=== PATIENT | female | born 1970 | race Caucasian/White ===

== ENCOUNTER 2019-01-18 17:32 | Emergency (ER) | payer BC ==
--- NOTE | 2019-01-18 18:42 | Emergency Department Record ---
History of Present Illness - General Chief Complaint: Neck Injury/Pain Stated Complaint: NECK PAIN Time Seen by Provider: 01/18/19 18:36 Source: Patient Mode of Arrival: Ambulatory Limitations: No limitations - History of Present Illness Initial Comments: 48 yo female presents with neck and jaw pain that started yesterday. She states it is an ache. She does not recall any injury. The pain lasted about 20 minutes yesterday but about 2 hours today. She has been getting physical therapy for a shoulder issue. She does not feel like she injured the shoulder doing the therapy. She denies a history of CAD. She does have a history of HTN and DM. She is a non smoker. No family history of premature CAD. No chest pain or shortness of breath. It is not related to exertion. No sweating. No fatigue. She states her is a typer and directed her to go to the ER for an EKG. MD Complaint: Neck pain Onset/Timin -: Days(s) Place: Home Radiation: Left shoulder Severity: Mild Severity scale (1-10): 1 Consistency: Constant Improves With: None Worsens With: None Associated Symptoms: None Treatments Prior to Arrival: None - Related Data Home Medications Medication Instructions Recorded Confirmed Last Taken Bupropion HCl [Bupropion Xl] 150 mg PO DAILY 01/18/19 01/18/19 Unknown Allergies Allergy/AdvReac Type Severity Reaction Status Date / Time No Known Drug Allergies Allergy Verified 04/10/15 14:42 Travel Screening - Travel/Exposure Within Last 30 Days Have you traveled within the last 30 days?: No Review of Systems Constitutional: Denies: Chills, Fever, Weakness Eyes: Denies: Eye discharge ENT: Reports: Throat pain. Denies: Congestion, Ear pain, Epistaxis, Hearing loss Respiratory: Denies: Cough, Hemoptysis, Stridor, Wheezes Cardiovascular: Denies: Arrhythmia, Chest pain, Dyspnea on exertion, Edema, Murmurs, Palpitations, Syncope Endocrine: Denies: Fatigue Gastrointestinal: Denies: Abdominal pain, Diarrhea, Nausea, Vomiting Genitourinary: Denies: Dysuria, Frequency, Hematuria Musculoskeletal: Reports: As per HPI, Neck pain. Denies: Arthralgia, Back pain Skin: Denies: Bruising, Change in color, Rash Neurological: Denies: Headache, Numbness, Tingling, Weakness Psychiatric: Denies: Anxiety Hematological/Lymphatic: Denies: Easy bleeding, Easy bruising Past Medical History - SOCIAL HISTORY Smoking Status: Never smoker Alcohol Use: None Drug Use: None - RESPIRATORY Hx Respiratory Disorders: No - CARDIOVASCULAR Hx Cardio Disorders: Yes Comment:: aortic an - NEURO Hx Neuro Disorders: No - GI Hx GI Disorders: Yes Hx Abdominal Pain: Yes - Hx Genitourinary Disorders: No - ENDOCRINE Hx Endocrine Disorders: Yes Hx Diabetes: Yes (type 2) Hx Thyroid Disease: No - MUSCULOSKELETAL Hx Musculoskeletal Disorders: No - PSYCH Hx Psych Problems: No - HEMATOLOGY/ONCOLOGY Hx Hematology/Oncology Disorders: No Family Medical History Any Significant Family History?: No Physical Exam - General General Appearance: Alert, Oriented x3, Cooperative, No acute distress Limitations: No limitations - Head Head exam: Atraumatic, Normal inspection - Eye Eye exam: Normal appearance, PERRL. negative: Conjunctival injection, Scleral icterus - ENT ENT exam: Normal exam, Mucous membranes moist Ear exam: Normal external inspection Nasal Exam: Normal inspection Mouth exam: Normal external inspection Teeth exam: Normal inspection - Neck Neck exam: Normal inspection, Full ROM. negative: Lymphadenopathy, Meningismus, Tenderness, Thyromegaly - Respiratory Respiratory exam: Normal lung sounds bilaterally. negative: Accessory muscle use, Chest wall tenderness, Decreased breath sounds, Prolonged expiratory, Respiratory distress, Rhonchi, Stridor, Wheezes - Cardiovascular Cardiovascular Exam: Regular rate, Normal rhythm, Normal heart sounds Peripheral Pulses: 2+: Radial (R), Radial (L) - GI/Abdominal GI/Abdominal exam: Soft. negative: Tenderness - Rectal Rectal exam: Deferred - exam: Deferred - Extremities Extremities exam: Normal inspection. negative: Pedal edema, Tenderness - Back Back exam: Denies: CVA tenderness (R), CVA tenderness (L) - Neurological Neurological exam: Alert, Oriented X3 - Psychiatric Psychiatric exam: Normal affect, Normal mood - Skin Skin exam: Dry, Intact, Normal color, Warm Course Vital Signs 01/18/19 18:11 Temperature 98.8 F Pulse Rate 74 Respiratory 16 Rate Blood Pressure 149/75 Pulse Ox 97 - Reevaluation(s) Reevaluation #1: 01/18/19 18:41 EKG#1 18:40 Rate 54 Rhythm sinus [place] normal Intervals normal ST Segs normal Prior none Normal EKG The labs results were reviewed There are no acute significant abnormalities of the CBC There are no acute significant abnormalities of the BMP The Troponin is normal The HEART SCORE is LOW risk She has an atypical presentation not highly suggestive of ACS or other acute process The patient will be discharged home with recommendation for follow up with her PCP We did discusse reasons to return immediately to the ED. 01/18/19 19:31 The patient did not have chest pain, atypical presentation, no aspirin indicated 01/18/19 Medical Decision Making - Lab Data Result diagrams: 01/18/19 18:42 01/18/19 18:42 Disposition Disposition: Discharge Clinical Impression: Neck pain Disposition: Home, Self-Care Condition: (1) Good Instructions: Neck Pain (ED) Additional Instructions: Call your doctor for the next available follow up appointment Review this ER visit and the tests performed with your family doctor Return to the ER for a recheck if worse, any new concerns or questions Forms: Patient Portal Access Time of Disposition: 19:33 Quality - Quality Measures Quality Measures: N/A - Blood Pressure Screening Does Patient Have Any of the Following: Active Dx of HTN Blood Pressure Classification: Hypertensive Reading Systolic Measurement: 149 Diastolic Measurement: 75 Screening for High Blood Pressure: Patient Exclusion, Hx of HTN [G9744]
[2019-01-18 18:52] LABS: BASO % 0.3 % (0-6); EOS % 0.9 % (0-6); GRAN % 62.4 % (47-80); HEMATOCRIT 43.7 % (35.0-47.0); HEMOGLOBIN 14.1 gm/dl (11.6-16.0); LYMPH % 29.7 % (16-45); MEAN CORPUSCULAR HEMOGLOBIN 27.8 pg (27-33); MEAN CORPUSCULAR HGB CONC 32.3 g/dl (32-36); MONO % 6.7 % (0-9); PLATELET COUNT 182 K/uL (130-400); RED BLOOD COUNT 5.08 M/uL (3.80-5.40); RED CELL DISTRIBUTION WIDTH 14.2 % (11.5-14.5); WHITE BLOOD COUNT W/O DIFF 6.6 K/uL (4.2-12.2)
[2019-01-18 19:05] LABS: BLOOD UREA NITROGEN 13 mg/dL (6-20); CREATININE 0.8 mg/dL (0.5-0.9); EST GLOMERULAR FILTRATION RATE > 60 mL/min
[2019-01-18 19:07] LABS: GLUCOSE,RANDOM 124 mg/dL (74-109)
== END 2019-01-18 19:56 | disposition home or self-care (01) ==
LOC: ER 17:32
DX: M54.2 Cervicalgia (principal); I10 Essential (primary) hypertension
CPT/HCPCS: 80048; 84484; 85025; 93005; 93010; 99284